=== PATIENT | female | born 1990 | race Two or more races ===

== ENCOUNTER 2023-12-07 11:48 | Emergency (ER) | payer OTHER ==
[2023-12-07 12:02] VITALS: RESP 18; BMI 40.9
[2023-12-07] MEDS ORDERED: ACETAMINOPHEN INJECTION 100 ML ONE (12:07)
[2023-12-07] MEDS: SODIUM CHLORIDE 0.9% 500 ML INFUS.BAG IV ONE (12:15)
[2023-12-07] MEDS: ACETAMINOPHEN 1000 MG/100 ML BAG IVPB ONE (12:15)
[2023-12-07] MEDS ORDERED: morphine SULFATE 4 MG/ML VIAL ONE (12:16)
[2023-12-07 12:32] LABS: BASO % 0.4 % (0-2.0); EOS % 0.2 % (0-4.5); HEMATOCRIT 36.4 % (32.4-45.2); HEMOGLOBIN 11.8 GM/dL (10.7-15.3); LYMPH % 9.4 % (8-40); MCH 22.3 pg (25.7-33.7); MCHC 32.3 g/dl (32.0-36.0); MEAN CELL VOLUME 69.2 fl (80-96); MEAN PLT VOLUME 10.1 fl (7.5-11.1); PLATELET COUNT 223 10^3/uL (134-434); RBC 5.27 M/mm3 (3.60-5.2); RDW 15.6 % (11.6-15.6); RETICULOCYTES 1.22 % (0.5-1.5)
[2023-12-07] MEDS: morphine CARPU-JECT 4 MG/1 ML DISP.SYRIN IVPUSH ONE (12:36)
[2023-12-07 12:38] LABS: INR 0.98 (0.83-1.09); PROTHROMBIN TIME (PATIENT) 11.1 SEC (9.7-13.0)
[2023-12-07 12:41] LABS: ACTIVATED PTT 30.8 SECONDS (25.2-36.5)
[2023-12-07] MEDS ORDERED: CEFTRIAXONE 2 GM/100 ML BAG IVPB ONE (12:54)
[2023-12-07 12:58] LABS: POTASSIUM 4.9 mmol/L (3.5-5.1); VENOUS BASE EXCESS -0.9 mmol/L (-2-2); VENOUS O2 SATURATION 77.7 % (70-80); VENOUS PCO2 29.9 mmHg (38-52); VENOUS PH 7.479 (7.310-7.410)
[2023-12-07 12:59] LABS: CALCIUM 9.4 mg/dL (8.5-10.1)
[2023-12-07 13:01] LABS: ALBUMIN 3.5 g/dl (3.4-5.0); LACTIC ACID 2.5 mmol/L (0.4-2.0)
[2023-12-07 13:04] LABS: CREATININE 0.6 mg/dL (0.55-1.3)
[2023-12-07 13:05] LABS: BILIRUBIN,TOTAL 0.7 mg/dL (0.2-1); TOT PROT 7.6 g/dl (6.4-8.2)
[2023-12-07 13:10] LABS: EPI CELLS 21 /uL (0-25.1); HYALINE CASTS 1 /uL (0-3.1); PH,URINE 7.5 (5.0-8.0); URINE APPEARANCE CLEAR; URINE BACTERIA 499 /uL (0-1359); URINE BILIRUBIN NEGATIVE (NEGATIVE); URINE COLOR YELLOW; URINE GLUCOSE (UA) NEGATIVE (NEGATIVE); URINE KETONE NEGATIVE (NEGATIVE); URINE LEUK ESTERASE TRACE (NEGATIVE); URINE NITRITE NEGATIVE (NEGATIVE); URINE PROTEIN NEGATIVE (NEGATIVE); URINE RBC 23 /uL (0-23.9); URINE UROBILINOGEN 0.2 mg/dL (0.2-1.0); URINE WBC 42 /uL (0-25.8)
[2023-12-07 13:18] LABS: HCG,QUALITATIVE URINE Negative
[2023-12-07 15:00] VITALS: BP 108/63; PULSE 90; TEMP 99.4
[2023-12-07] MEDS ORDERED: ONDANSETRON 4 MG/2 ML VIAL ONE (15:39)
[2023-12-07] MEDS: ONDANSETRON 4 MG/2 ML VIAL IVPUSH ONE (15:43)
== END 2023-12-07 15:44 | disposition home or self-care (01) ==
LOC: JER 11:48
PROC: 3E033NZ Introduction of Analgesics, Hypnotics, Sedatives into Peripheral Vein, Percutaneous Approach (ICD-10-PCS; principal; 2023-12-07)
PROC: 3E033NZ Introduction of Analgesics, Hypnotics, Sedatives into Peripheral Vein, Percutaneous Approach (ICD-10-PCS; 2023-12-07)
PROC: 3E03329 Introduction of Other Anti-infective into Peripheral Vein, Percutaneous Approach (ICD-10-PCS; 2023-12-07)
PROC: 3E033GC Introduction of Other Therapeutic Substance into Peripheral Vein, Percutaneous Approach (ICD-10-PCS; 2023-12-07)
DX: D57.1 Sickle-cell disease without crisis (principal); R50.81 Fever presenting with conditions classified elsewhere; Z20.822 Contact with and (suspected) exposure to COVID-19
CPT/HCPCS: 0241U-QW; 36415; 71045-TC-FY; 80053; 81003; 82803; 83010; 83605; 83615; 84484; 84703; 85025; 85045; 85610; 85730; 87040; 87086; 93005; 93010; 99285-25; J0131